=== PATIENT | female | born 1965 | race Caucasian/White ===

== ENCOUNTER 2020-04-18 08:08 | Emergency (ER) | payer BC, OTHER ==
[~2020-04-18] VITALS: Ht 165.1 cm; Wt 76.3 kg
--- NOTE | 2020-04-18 08:08 | NUR ---
Pt arrival to ED from place of employment [employer]. Pt felt SOA while working and experienced this the day before. Pt was notifying co-worker and then management she wanted to sit for a moment in break room then go home for the day. Pt reports employer called 911 insisting she go to ER. See triage note.
[2020-04-18] MEDS ORDERED: Atenolol (08:25)
[2020-04-18] MEDS ORDERED: Protonix (08:25)
[2020-04-18] MEDS ORDERED: Celexa (08:25)
[2020-04-18] MEDS ORDERED: Amitriptyline (08:25)
[2020-04-18] MEDS ORDERED: ASPIRIN 81 MG CHEW (CHILDREN'S ASA) PO ONE (08:30)
--- NOTE | 2020-04-18 08:37 | ED Dyspnea ---
General Chief Complaint: Respiratory Problems Stated Complaint: SOB Source of Information: Patient, EMS Exam Limitations: No Limitations History of Present Illness Date Seen by Provider: Apr 18, 2020 Time Seen by Provider: 08:10 Initial Comments The patient is a pleasant 54-year-old female who presents via EMS for evaluation of chest tightness, shortness of breath, and cough since yesterday. 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 She is a long-time cigarette smoker but states that she is trying to quit. She has no confirmed history of COPD or asthma and does not use breathing treatments are auction at home. She has had a stress test in the past which she passed. She is alert and oriented 4, calm, and appears to be in no distress. She states that she has felt warm but has not had a fever when her temperature was taken at work or by EMS. She denies productive cough, hemoptysis, abdominal discomfort, back or flank pain, urinary complaints, diaphoresis, headache, dizziness or syncope. Timing/Duration: 24 Hours Severity: Moderate Activities at Onset: None Modifying Factors: Improves With Activity (makes it worse), Improves With Rest (makes it better) Associated Symptoms: Chest Pain, Cough Allergies and Home Medications Allergies Coded Allergies: hydrocodone (Unverified Adverse Reaction, Intermediate, throat swelling sensation, 04/18/20) morphine (Unverified Adverse Reaction, Intermediate, throat swelling sensation, 04/18/20) Penicillins (Unverified Adverse Reaction, Unknown, 04/18/20) Patient Home Medication List Home Medication List Reviewed: Yes Review of Systems Review of Systems Constitutional: no symptoms reported EENTM: no symptoms reported Respiratory: cough, short of breath Cardiovascular: chest pain Gastrointestinal: no symptoms reported Musculoskeletal: no symptoms reported Skin: no symptoms reported Psychiatric/Neurological: No Symptoms Reported Endocrine: No Symptoms Reported Hematologic/Lymphatic: No Symptoms Reported All Other Systems Reviewed Negative Unless Noted: Yes Past Irjkjxl-Yybqkv-Izaajz Hx Past Med/Social Hx: Reviewed Nursing Past Med/Soc Hx Physical Exam Vital Signs Vital Signs - First Documented 04/18/20 08:08 Temp 36.4 Pulse 69 Resp 22 B/P (MAP) 148/95 (112) Pulse Ox 100 O2 Delivery Nasal Cannula O2 Flow Rate 2.00 Capillary Refill : Height, Weight, BMI Height: '" Weight: lbs. oz. kg; BMI Method: General Appearance: No Apparent Distress, WD/WN HEENT: PERRL/EOMI, Pharynx Normal Neck: Full Range of Motion, Supple Respiratory: Lungs Clear, Normal Breath Sounds, No Accessory Muscle Use, No Respiratory Distress Cardiovascular: Regular Rate, Rhythm, No Edema, No JVD, No Murmur, Normal Peripheral Pulses Gastrointestinal: No Pulsatile Mass, Non Tender, Soft Extremity: Normal Capillary Refill, Normal Inspection, Normal Range of Motion, Non Tender, No Calf Tenderness Neurologic/Psychiatric: Alert, Oriented x3, No Motor/Sensory Deficits, Normal Mood/Affect Skin: Normal Color, Warm/Dry Focused Exam Lactate Level 04/18/20 08:45: Lactic Acid Level 1.45 Lactic Acid Level Laboratory Tests Test 04/18/20 08:45 Lactic Acid Level 1.45 MMOL/L (0.50-2.00) Progress/Results/Core Measures Results/Orders Lab Results Laboratory Tests Test 04/18/20 08:45 04/18/20 09:05 Range/Units White Blood Count 8.0 4.3-11.0 10^3/uL Red Blood Count 4.26 L 4.35-5.85 10^6/uL Hemoglobin 13.2 11.5-16.0 G/DL Hematocrit 39 35-52 % Mean Corpuscular Volume 92 80-99 FL Mean Corpuscular Hemoglobin 31 25-34 PG Mean Corpuscular Hemoglobin Concent 34 32-36 G/DL Red Cell Distribution Width 13.6 10.0-14.5 % Platelet Count 295 130-400 10^3/uL Mean Platelet Volume 9.9 7.4-10.4 FL Immature Granulocyte % (Auto) 0 % Neutrophils (%) (Auto) 65 42-75 % Lymphocytes (%) (Auto) 28 12-44 % Monocytes (%) (Auto) 9 0-12 % Eosinophils (%) (Auto) 1 0-10 % Basophils (%) (Auto) 0 0-10 % Neutrophils # (Auto) 5.2 1.8-7.8 X 10^3 Lymphocytes # (Auto) 2.2 1.0-4.0 X 10^3 Monocytes # (Auto) 0.5 0.0-1.0 X 10^3 Eosinophils # (Auto) 0.1 0.0-0.3 10^3/uL Basophils # (Auto) 0.0 0.0-0.1 10^3/uL Immature Granulocyte # (Auto) 0.0 0.0-0.1 10^3/uL Prothrombin Time 13.2 12.2-14.7 SEC INR Comment 1.0 0.8-1.4 Activated Partial Thromboplast Time 29 24-35 SEC D-Dimer 0.20 0.00-0.49 UG/ML Sodium Level 142 135-145 MMOL/L Potassium Level 3.3 L 3.6-5.0 MMOL/L Chloride Level 106 98-107 MMOL/L Carbon Dioxide Level 24 21-32 MMOL/L Anion Gap 12 5-14 MMOL/L Blood Urea Nitrogen 12 7-18 MG/DL Creatinine 0.86 0.60-1.30 MG/DL Estimat Glomerular Filtration Rate > 60 BUN/Creatinine Ratio 14 Glucose Level 125 H 70-105 MG/DL Lactic Acid Level 1.45 0.50-2.00 MMOL/L Calcium Level 8.7 8.5-10.1 MG/DL Corrected Calcium 8.7 8.5-10.1 MG/DL Magnesium Level 2.0 1.6-2.4 MG/DL Total Bilirubin 0.5 0.1-1.0 MG/DL Aspartate Amino Transf (AST/SGOT) 19 5-34 U/L Alanine Aminotransferase (ALT/SGPT) 17 0-55 U/L Alkaline Phosphatase 78 40-136 U/L Troponin I < 0.30 <0.30 NG/ML Pro-B-Type Natriuretic Peptide 229.2 H <75.0 PG/ML Total Protein 6.5 6.4-8.2 GM/DL Albumin 4.0 3.2-4.5 GM/DL My Orders Orders - RUBIO HUMPHREY DO Cbc With Automated Diff (04/18/20 08:18) Comprehensive Metabolic Panel (04/18/20 08:18) Creatine Kinase (04/18/20 08:18) Creatine Kinase Mb (04/18/20 08:18) Lactic Acid Analyzer (04/18/20 08:18) Magnesium (04/18/20 08:18) Procalcitonin (Pct) (04/18/20 08:18) Protime With Inr (04/18/20 08:18) Partial Thromboplastin Time (04/18/20 08:18) Blood Culture (9/25/20 08:18) Probnp Fs (04/18/20 08:18) Troponin I Fs (04/18/20 08:18) Coronavirus Sars-Cov-2 So 2019 (04/18/20 08:18) Fibrin Degradation Products (04/18/20 08:18) Ekg Tracing (04/18/20 08:18) Continuous Ekg Monitoring (04/18/20 08:18) Chest 1 View Ap/Pa Only (04/18/20 08:18) Aspirin Chewable Tablet (Baby Aspirin Ch (04/18/20 08:30) Potassium Chloride (Tablet) (K Dur Table (04/18/20 10:15) Medications Given in ED Current Medications Medications Dose Ordered Sig/Gerri Route Start Time Stop Time Status Last Admin Dose Admin Aspirin 325 mg ONCE ONCE PO 04/18/20 08:30 04/18/20 08:31 DC 04/18/20 08:59 325 MG Vital Signs/I&O 04/18/20 08:08 Temp 36.4 Pulse 69 Resp 22 B/P (MAP) 148/95 (112) Pulse Ox 100 O2 Delivery Nasal Cannula O2 Flow Rate 2.00 Progress Progress Note : Progress Note @1015 - Patient updated on lab and imaging results. The patient is stable for discharge home. Because of her work contacted tested positive for comfort and the fact that she was tested in the emergency Department today she will need to stay home and self quarantined until she is given the results of her test. Her potassium was slightly low and has been replaced with oral medication. She states that she did not really want to come to the hospital because her symptoms were mild and she that she just wanted to go home. She states that her work advised her to come to be evaluated. She denies any symptoms at this time and states that she would like to go home. Workup fails to reveal any emergent pathology. The patient is stable for discharge at this time. Advised the patient to return to the emergency Department immediately for new or worsening symptoms. Comment @839 - Normal sinus rhythm, rate of 60, normal axis, no acute ischemic findings noted, no STEMI, reviewed and interpreted by myself Diagnostic Imaging Diagonstic Imaging: Xray Comments [facility] [place], [place] NAME: GREGORY [facility] REC#: [id number] PT STATUS: REG ER : 1965 PHYSICIAN: RUBIO HUMPHREY DO ADMIT DATE: 04/18/20/ER FS Draft Date of Exam:04/18/20 CHEST 1 VIEW AP/PA ONLY INDICATION: dyspnea COMPARISON: None FINDINGS: Single frontal view of the chest demonstrates normal heart size and pulmonary vascularity. The lungs are well aerated and clear. No large pleural effusion or pneumothorax is seen. The visualized osseous structures show no acute abnormalities. IMPRESSION: 1. No acute cardiopulmonary process. Dictated on workstation # [id number] Dict: 04/18/20 0853 Trans: 04/18/[address] [facility] [id number] Interpreted by: KESHAV CONNER MD Electronically signed by: Departure Impression Primary Impression: Acute URI Additional Impressions: Dyspnea Tobacco abuse Disposition: 01 HOME, SELF-CARE Condition: Stable Departure-Patient Inst. Decision time for Depature: 10:16 Patient Instructions: COVID19, Coronavirus Disease 2019 (COVID-19) Tests, Cough, Adult (DC), Quitting Smoking, Shortness of Breath (Dyspnea) (DC) Add. Discharge Instructions: You have tested for the coronavirus today because of ear symptoms. Do not return to work and stay home and away from others until you learn the results of your coronavirus test. Stop smoking cigarettes. Return to the Emergency Department immediately for difficulty breathing, new or worsening symptoms. RUBIO HUMPHREY DO Apr 18, 2020 08:37
--- NOTE | 2020-04-18 08:56 | Diagnostic Imaging Report ---
INDICATION: dyspnea COMPARISON: None FINDINGS: Single frontal view of the chest demonstrates normal heart size and pulmonary vascularity. The lungs are well aerated and clear. No large pleural effusion or pneumothorax is seen. The visualized osseous structures show no acute abnormalities. IMPRESSION: 1. No acute cardiopulmonary process. Dictated by: Dictated on workstation # [id number]
--- NOTE | 2020-04-18 09:05 | NUR ---
Pt was swabbed for COVID as ordered.
[2020-04-18 09:08] LABS: BASOPHILS % (AUTO) 0 % (0-10); EOSINOPHILS % (AUTO) 1 % (0-10); HEMATOCRIT 39 % (35-52); HEMOGLOBIN 13.2 G/DL (11.5-16.0); LYMPHOCYTES % (AUTO) 28 % (12-44); MEAN CORPUSCULAR HEMOGLOBIN 31 PG (25-34); MEAN CORPUSCULAR HGB CONC 34 G/DL (32-36); MEAN CORPUSCULAR VOLUME 92 FL (80-99); MEAN PLATELET VOLUME 9.9 FL (7.4-10.4); MONOCYTES % (AUTO) 9 % (0-12); NEUTROPHILS # (AUTO) 5.2 X 10^3 (1.8-7.8); NEUTROPHILS % (AUTO) 65 % (42-75); PLATELET COUNT 295 10^3/uL (130-400)
[2020-04-18 09:09] LABS: EOSINOPHILS # (AUTO) 0.1 10^3/uL (0.0-0.3); LYMPHOCYTES # (AUTO) 2.2 X 10^3 (1.0-4.0); MONOCYTES # (AUTO) 0.5 X 10^3 (0.0-1.0)
[2020-04-18 09:28] LABS: PROTHROMBIN TIME PATIENT 13.2 SEC (12.2-14.7)
[2020-04-18 09:29] LABS: FIBRIN DEGRADATION PRODUCTS 0.2 UG/ML (0.00-0.49)
[2020-04-18 09:35] LABS: CARBON DIOXIDE 24 MMOL/L (21-32); CHLORIDE 106 MMOL/L (98-107); POTASSIUM 3.3 MMOL/L (3.6-5.0); SODIUM 142 MMOL/L (135-145)
[2020-04-18 09:36] LABS: ALANINE AMINOTRANSFERASE 17 U/L (0-55); ALKALINE PHOSPHATASE 78 U/L (40-136); BILIRUBIN,TOTAL 0.5 MG/DL (0.1-1.0); BUN/CREATININE RATIO 14; CALCIUM 8.7 MG/DL (8.5-10.1); CREATININE SERUM 0.86 MG/DL (0.60-1.30); GFR ESTIMATED > 60; GLUCOSE 125 MG/DL (70-105); TOTAL PROTEIN 6.5 GM/DL (6.4-8.2)
--- NOTE | 2020-04-18 10:00 | NUR ---
Pt reports feeling better and has remained off O2 since COVID testing remaining >94% on Rm air.
[2020-04-18] MEDS ORDERED: KCL 20 MEQ TAB (K-DUR) PO ONE (10:15)
[2020-04-18 11:00] VITALS: BP 137/76
--- NOTE | 2020-04-18 11:00 | NUR ---
See discharge summary. Pt verbalizes understanding of instructions reviewed. Pt was verbal consent to see and treat and for receiving discharge instructions as PUI/no signatures on papers. Pt is going to be picked up by family to discharge to get her vehicle at work and go home to remain on quarantinine pending the results of COVID swab obtained andd vs increasing symptomatic symptoms of COVID that require retesting at a later date again if negative initially. Pt discharged thru [facility] to the ER/EMS garage to avoid other contact with persons.
[2020-04-18 15:21] LABS: CREATINE KINASE 158 U/L (29-168)
[2020-04-18 15:43] LABS: CREATINE KINASE MB 1.4 NG/ML (<6.6)
== END 2020-04-18 11:00 | disposition home or self-care (01) ==
LOC: ER FS 08:10
DX: J06.9 Acute upper respiratory infection, unspecified (principal); R06.00 Dyspnea, unspecified; F17.200 Nicotine dependence, unspecified, uncomplicated; Z88.0 Allergy status to penicillin; Z88.5 Allergy status to narcotic agent; Z20.828 Contact with and (suspected) exposure to other viral communicable diseases
CPT/HCPCS: 36415; 71045; 80053; 82550; 82553; 83605; 83735; 83880; 84145; 84484; 85025; 85379; 85610; 85730; 87040; 99284; U0002; 87635; 93005